=== PATIENT | male | born 1990 | race Two or more races ===

== ENCOUNTER 2021-05-23 10:38 | Emergency (ER) | payer MEDICAID, OTHER ==
[~2021-05-23] VITALS: Ht 167.6 cm; Wt 71.7 kg
[2021-05-23] MEDS ORDERED: ACETAMINOPHEN 500 MG TAB PO ONE (17:45)
[2021-05-23 17:58] LABS: Basophils # (auto) 0.1 10 ^3/uL (0-0.2); Basophils % (auto) 0.5 % (0.0-2.0); Eosinophils # (auto) 0 10 ^3/uL (0-0.8); Eosinophils % (auto) 0.4 % (0.0-7.0); Hematocrit 47.9 % (41.0-53.0); Hemoglobin 15.5 g/dL (13.5-17.5); Lymphocytes # (auto) 3.4 10 ^3/uL (0.4-5.4); Lymphocytes % (auto) 32.2 % (10.0-50.0); Mean Corpuscular Hemoglobin 29.4 pg (28.0-32.0); Mean Corpuscular Hgb Conc. 32.4 g/dL (32.0-36.0); Mean Corpuscular Volume 90.6 fL (80.0-100.0); Monocytes # (auto) 0.8 10 ^3/uL (0-1.3); Monocytes % (auto) 7.9 % (0.0-12.0); Neutrophils # (auto) 6.2 10 ^3/uL (1.6-8.6); Red Blood Cells 5.28 10^6/uL (4.5-5.90); Red Cell Distribution Width 14.2 % (11.8-14.3); White Blood Cell 10.5 10^3/uL (4.4-10.8)
[2021-05-23] MEDS ORDERED: ONDANSETRON HCL 4 MG/2 ML VIAL IV ONE (18:00)
[2021-05-23 18:21] LABS: Albumin 4.2 g/dL (3.4-5.0); Calcium 9.1 mg/dL (8.5-10.1); Potassium 3.7 mmol/L (3.5-5.1)
[2021-05-23 18:24] LABS: BUN/Creatinine Ratio 9.7; Bilirubin, Total 0.4 mg/dL (0.2-1.0)
[2021-05-23 19:09] LABS: INR 1.03 (0.9-1.15); Partial Thromboplastin Time 25.4 sec (23.6-33.0)
[2021-05-23 20:44] VITALS: BP 102/65
== END 2021-05-23 21:26 | disposition left against medical advice (07) ==
LOC: ER 10:38
DX: G91.9 Hydrocephalus, unspecified (principal)
CPT/HCPCS: 36415; 70250; 70360; 70450; 71046; 74018; 80053; 85025; 85610; 85730; 86850; 86900; 86901; 96374; 99285; J2405